=== PATIENT | male | born 1945 | race Caucasian/White ===

== ENCOUNTER → 2017-07-11 | Day surgery (SDC) | payer MEDICARE ==
[2017-06-21 10:22] VITALS: Ht 180.3 cm; Wt 113.6 kg
[~2017-07-11] VITALS: Ht 180.3 cm; Wt 113.6 kg
[~2017-07-11] MED LIST: ACETAMINOPHEN 325 MG TAB PO PRN; AMLO5TAB2 PO; ASPI-232 PO; ATOR-54 PO; ATROPINE SULFATE 0.1 MG/ML 5ML SYR IV PRN; ATROPINE SULFATE 1% OP SOLN 2 ML BTL ONE; CHOL1CAP57 PO; EpHEDrine SULFATE INJ 50 MG/ML AMP IV PRN; GABA1CAP PO; GLC/500 PO; ISOS30TA3 PO; LACTATED RINGER'S 1000ML 1,000 ML IV SCH; LIDO 2%/EPINEPHRINE 1:100000 20 ML VIAL INFIL ONE; LIDOCAINE 3.5% OPH GEL PER APPLICATION CHARGE OPR SCH; LIDOCAINE 4% OP SOLN DROP CHARGE OPR SCH; LSN20 PO; MIDAZOLAM HCL 1 MG/ML 2ML VIAL ONE; MOXIFLOXACIN OPH SOLN PER DROP CHARGE ONE; OMEG5CAP PO; POVIDONE-IODINE OP SOLN 30 ML BTL ONE; PROPARACAINE 0.5% OP SOLN PER DROP CHARGE OPR SCH; PROPOFOL IV EMULSION 10 MG/ML 20 ML VIAL IV ONE; TAMS0.4C38 PO; TETRACAINE HCL (OPHTH) 60 DROPS/4 ML BTL OP ONE; TISSEEL FIBRIN SEALANT 2ML TOP ONE; XNX25X PO; ZOLP5TAB PO
[2017-07-11] MEDS: MOXIFLOXACIN OPH SOLN PER DROP CHARGE OPR SCH ×3 (10:36→10:58)
--- NOTE | 2017-07-11 10:45 | History & Physical Bridge - [place] ---
H&P Re-Evaluation Bridge Note: I have examined the patient, reviewed the History & Physical and in the interval since the performance of the History & Physical I have noted the following changes of clinical significance: No changes noted
--- NOTE | 2017-07-11 12:24 | Discharge Instructions-SurgCtr ---
Discharge Instructions Date of Service Jul 11, 2017. 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 Post Anesthesia Instructions: If you have had General Anesthesia or IV Sedation: * Do not drive today. * Resume driving when surgeon permits. * Do not make important decisions or sign legal documents today. * Call surgeon for: 1. Temperature elevations greater than 101 degrees F. 2. Uncontrollable pain. 3. Excessive bleeding. 4. Persistent nausea and vomiting. 5. Medication intolerance (nausea, vomiting or rash). * For nausea and vomiting use only clear liquids such as: tea, soda, bouillon until nausea subsides, then gradually increase diet as tolerated. * If you have any concerns or questions, call your surgeon's office. If physician is unavailable and it is an emergency, call 911 or go to the nearest emergency room. . Instructions / Follow-Up Instructions / Follow-Up ACTIVITY RECOMMENDATIONS: * Light activities * You may walk outside, read, watch television. * Mild irritation and blurred vision are common for the first few days, redness around the white part of the eye is common. MEDICATIONS: Resume previous medications unless instructed otherwise by your surgeon. SPECIAL CARE INSTRUCTIONS: * If any problems or concerns, please call Dr. De Jesus's office at . * Keep plastic shield taped over eye to sleep at night. * Keep plastic shield on until office visit the following day. FOLLOW UP VISIT: Follow-up with Dr. De Jesus in the [place] office as scheduled. If not already scheduled, please call the office at . Diet Recommendations Home Diet: resume previous diet Procedures Procedures Performed: Right Eye Conjunctival Biopsy With Cryotherapy And Amniotic Membrane Graft Pending Studies Studies pending at discharge: no Medical Emergencies . Who to Call and When: Medical Emergencies: If at any time you feel your situation is an emergency, please call 911 immediately. . Non-Emergent Contact Non-Emergency issues call your: [employer] Technician . . "Provider Documentation" section prepared by Garret De Jesus. .
[2017-07-11 12:25] VITALS: TEMP 36.4
--- NOTE | 2017-07-11 12:26 | [facility] Post Operative Brief Note ---
Immediate Operative Summary Operative Date Jul 11, 2017. 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 Conjunctiva from 10-6 at the [place]imb[place], Vicryl at 6 o'clock and Nylon at 10 o'clock, Right Eye Drains none Anesthesia local with sedation Complication(s) None Disposition Recovery Room / PACU
[2017-07-11 12:53] VITALS: BP 126/80; PULSE 70; O2SAT 94
--- NOTE | 2017-07-11 12:53 | Anesthesia Progress Nt - [facility] ---
Anesthesia Post Op Note Date & Time Jul 11, 2017 at 12:53 Vital Signs Pain Intensity: 0 Vital Signs Past 12 Hours Date Time Temp Pulse Resp B/P (MAP) Pulse Ox O2 Delivery O2 Flow Rate FiO2 07/11/17 12:25 36.4 71 16 125/76 (92) 95 Room Air 07/11/17 10:31 36.6 74 20 162/92 (115) 94 Room Air Notes Mental Status: alert / awake / arousable, participated in evaluation Pt Amnestic to Procedure: Yes Nausea / Vomiting: adequately controlled Pain: adequately controlled Airway Patency, RR, SpO2: stable & adequate BP & HR: stable & adequate Hydration State: stable & adequate Anesthetic Complications: no major complications apparent
--- NOTE | 2017-07-11 13:04 | OPERATIVE REPORT ---
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 POSTOPERATIVE DIAGNOSIS: Same. PROCEDURE PERFORMED: Conjunctivae and corneal lesion excision with cryotherapy to the margins and amniotic membrane graft. ANESTHESIA: Local with sedation. COMPLICATIONS: None. DESCRIPTION OF PROCEDURE: After informed consent was obtained in the holding area, the patient was taken to the operating room where cardiac monitoring leads and oxygen by nasal cannula was administered by anesthesia. Gentle IV sedation was given, and the patient's right eye was prepped and draped in usual sterile fashion. Wire lid speculum was placed in the right eye and the operating microscope swung into position. Calipers were inked and used to oh a 3 mm margin from the furthest visible extent of the lesion along the conjunctiva bed. The lesion itself was at the limbus growing onto the cornea at approximately the 8 o'clock position of the patient's right eye. The conjunctiva was infiltrated with 2% lidocaine with epinephrine to separate it from the underlying Tenon's capsule as best as possible. The conjunctiva was then incised at the limbus going back to the conjunctival fornix for the marked area all the way around from 10 o'clock to 6 o'clock. The conjunctiva and the lesion was then amputated from the eye. The remaining lesion on the corneal surface was again marked using a 3 mm margin and scraped off the corneal surface. Once this was done, the area over the lesion was at the limbus was cauterized and then the cryoprobe was used around the conjunctiva margins 360 degrees from the excised area including the limbus in a double freeze thaw technique. The defect was then measured to be 11 x 7 mm of the scleral surface where the conjunctiva was missing where it was amputated. An amniotic membrane graft was then cut to size and placed over the area and glued in place using Tisseel glue. Once this was completed, atropine and Vigamox were placed on the eye and the eye was patch closed. The patient tolerated the procedure well and was taken to recovery area in stable condition. I attest to the content of the Intraoperative Record and any orders documented therein. Any exception s are noted below.
== END | disposition home or self-care (01) ==
LOC: MERGE 09:30 → X.SURG 10:12
PROVIDERS: ATTEND Ophthalmology
DX: D31.01 Benign neoplasm of right conjunctiva (principal); I10 Essential (primary) hypertension; F32.9 Major depressive disorder, single episode, unspecified; G47.33 Obstructive sleep apnea (adult) (pediatric); I25.2 Old myocardial infarction; M19.90 Unspecified osteoarthritis, unspecified site; E78.5 Hyperlipidemia, unspecified; I25.10 Atherosclerotic heart disease of native coronary artery without angina pectoris; K21.9 Gastro-esophageal reflux disease without esophagitis; Z87.891 Personal history of nicotine dependence; Z79.899 Other long term (current) drug therapy; Z90.89 Acquired absence of other organs; Z98.890 Other specified postprocedural states; Z96.659 Presence of unspecified artificial knee joint; E66.9 Obesity, unspecified; Z68.35 Body mass index [BMI] 35.0-35.9, adult; Z85.828 Personal history of other malignant neoplasm of skin; Z83.3 Family history of diabetes mellitus; Z82.49 Family history of ischemic heart disease and other diseases of the circulatory system

== ENCOUNTER → 2017-08-31 | Outpatient (CLI) | payer MEDICARE ==
[~2017-08-31] MED LIST changes: -ACETAMINOPHEN 325 MG TAB PO PRN; -ATROPINE SULFATE 0.1 MG/ML 5ML SYR IV PRN; -ATROPINE SULFATE 1% OP SOLN 2 ML BTL ONE; -EpHEDrine SULFATE INJ 50 MG/ML AMP IV PRN; -LACTATED RINGER'S 1000ML 1,000 ML IV SCH; -LIDO 2%/EPINEPHRINE 1:100000 20 ML VIAL INFIL ONE; -LIDOCAINE 3.5% OPH GEL PER APPLICATION CHARGE OPR SCH; -LIDOCAINE 4% OP SOLN DROP CHARGE OPR SCH; -MIDAZOLAM HCL 1 MG/ML 2ML VIAL ONE; -MOXIFLOXACIN OPH SOLN PER DROP CHARGE ONE; -POVIDONE-IODINE OP SOLN 30 ML BTL ONE; -PROPARACAINE 0.5% OP SOLN PER DROP CHARGE OPR SCH; -PROPOFOL IV EMULSION 10 MG/ML 20 ML VIAL IV ONE; -TETRACAINE HCL (OPHTH) 60 DROPS/4 ML BTL OP ONE; -TISSEEL FIBRIN SEALANT 2ML TOP ONE
== END | disposition home or self-care (01) ==
LOC: C.LABSPEC 11:01
PROVIDERS: ATTEND Ophthalmology
DX: D23.11 Other benign neoplasm of skin of right eyelid, including canthus (principal)